=== PATIENT | female | born 1995 | race African-American/Black ===

== ENCOUNTER 2018-08-31 12:59 | Emergency (ER) | payer OTHER ==
[~2018-08-31] VITALS: Ht 162.6 cm; Wt 59.0 kg
[2018-08-31 15:08] VITALS: BP 126/80
== END 2018-08-31 15:08 | disposition home or self-care (01) ==
LOC: ER 13:44
DX: M25.511 Pain in right shoulder (principal); V49.59XA Passenger injured in collision with other motor vehicles in traffic accident, initial encounter; Y93.89 Activity, other specified; Y92.89 Other specified places as the place of occurrence of the external cause; Y99.8 Other external cause status
CPT/HCPCS: 99281

== ENCOUNTER 2019-01-22 12:33 | Emergency (ER) | payer OTHER ==
[~2019-01-22] VITALS: Ht 167.6 cm; Wt 58.0 kg
[2019-01-22 13:27] VITALS: BP 115/62
== END 2019-01-22 13:53 | disposition home or self-care (01) ==
LOC: ER 12:33
DX: S63.502A Unspecified sprain of left wrist, initial encounter (principal); X50.0XXA Overexertion from strenuous movement or load, initial encounter; Y93.89 Activity, other specified; Y92.511 Restaurant or cafe as the place of occurrence of the external cause; Y99.0 Civilian activity done for income or pay
CPT/HCPCS: 29125; 99283

== ENCOUNTER 2019-09-17 16:33 | Emergency (ER) | payer OTHER, BC ==
[~2019-09-17] VITALS: Ht 162.6 cm; Wt 60.0 kg
[2019-09-17 17:24] VITALS: BP 133/79
== END 2019-09-17 19:20 | disposition home or self-care (01) ==
LOC: ER 16:33
DX: D48.0 Neoplasm of uncertain behavior of bone and articular cartilage (principal)
CPT/HCPCS: 73110; 99283